=== PATIENT | male | born 1980 | race American Indian/Alaskan Native ===

== ENCOUNTER 2016-07-14 15:13 | Emergency (ER) | payer OTHER ==
[2016-07-14 15:46] VITALS: BP 119/86
--- NOTE | 2016-07-14 19:10 | Emergency Department Report ---
ED General Adult HPI - General Chief complaint: Skin Rash Stated complaint: ABCESS ON HEAD Time Seen by Provider: 07/14/16 18:49 Source: patient Mode of arrival: Ambulatory Limitations: No Limitations - History of Present Illness Initial comments: PT c/o bump to R scalp x 1 month. PT states it does not hurt. PT states he wants it removed. PT denies redness, drainage or tenderness. PT states he has not had this before. MD Complaint: cyst Onset/Timin -: Gradual, month(s) Location: head Severity scale (0 -10): 0 Improves with: none Worsens with: none Associated Symptoms: denies: fever/chills, headaches, nausea/vomiting Treatments Prior to Arrival: none - Related Data Previous Rx's Medication Instructions Recorded Last Taken Type Cephalexin [Keflex] 250 mg PO Q6HR #20 capsule 09/21/14 Unknown Rx Mupirocin [Bactroban 2% Oint] 1 applic TP TID #1 tube 09/21/14 Unknown Rx Allergies Allergy/AdvReac Type Severity Reaction Status Date / Time No Known Allergies Allergy Unverified 09/21/14 16:52 ED Review of Systems ROS: Stated complaint: ABCESS ON HEAD Other details as noted in HPI Comment: All other systems reviewed and negative Constitutional: denies: chills, fever Skin: denies: rash, change in color Neurological: denies: headache, numbness, paresthesias ED Past Medical Hx - Past Medical History Previous Medical History?: Yes Additional medical history: boil - Surgical History Past Surgical History?: No - Social History Smoking Status: Current Some Day Smoker Substance Use Type: Alcohol, Marijuana - Medications Home Medications: Home Medications Medication Instructions Recorded Confirmed Last Taken Type Cephalexin [Keflex] 250 mg PO Q6HR #20 capsule 09/21/14 Unknown Rx Mupirocin [Bactroban 2% Oint] 1 applic TP TID #1 tube 09/21/14 Unknown Rx ED Physical Exam - General Limitations: No Limitations General appearance: alert, in no apparent distress - Head Head exam: Present: atraumatic, normocephalic, other (R parietal region with 2 cm mass. area is soft and non tender. no erythema, no drainage) - Eye Eye exam: Present: normal appearance, EOMI. Absent: conjunctival injection - ENT ENT exam: Present: normal exam - Neck Neck exam: Present: normal inspection, full ROM. Absent: tenderness, lymphadenopathy - Respiratory Respiratory exam: Present: normal lung sounds bilaterally. Absent: respiratory distress - Cardiovascular Cardiovascular Exam: Present: regular rate, normal rhythm - Extremities Exam Extremities exam: Present: normal inspection, full ROM - Back Exam Back exam: Present: normal inspection, full ROM - Neurological Exam Neurological exam: Present: alert, oriented X3 - Psychiatric Psychiatric exam: Present: normal affect, normal mood - Skin Skin exam: Present: warm, dry, intact, normal color ED Course Vital Signs 07/14/16 15:40 Temperature 98.1 F Pulse Rate 75 Respiratory 20 Rate Blood Pressure 119/86 O2 Sat by Pulse 96 Oximetry - Pulse Oximetry Interpretation Digit-Finger Initial Pulse Oximetry Readin Actions Taken: none ED Medical Decision Making - Differential Diagnosis abscess, cyst, mass Critical Care Time: No Critical care attestation.: If time is entered above; I have spent that time in minutes in the direct care of this critically ill patient, excluding procedure time. ED Disposition Clinical Impression: Scalp cyst Disposition: DISCHARGED TO HOME OR SELFCARE Is pt being admited?: No Does the pt Need Aspirin: No Condition: Stable Additional Instructions: Follow up with Dermatology or Surgeon for possible biopsy or removal of mass Referrals: PRIMARY CARE [Primary Care Provider] - 3-5 Days Time of Disposition: 19:15
== END 2016-07-14 19:24 | disposition home or self-care (01) ==
LOC: ED 15:13
DX: L72.8 Other follicular cysts of the skin and subcutaneous tissue (principal); F17.200 Nicotine dependence, unspecified, uncomplicated; F12.10 Cannabis abuse, uncomplicated
CPT/HCPCS: 99282